=== PATIENT | female | born 1960 | race Caucasian/White ===

== ENCOUNTER 2018-03-09 09:30 | Emergency (ER) | payer MEDICAID ==
[~2018-03-09] VITALS: Ht 157.5 cm; Wt 52.0 kg
[~2018-03-09 09:30] MED LIST: ACET1TAB12 PO; ASPI-1265 PO; ATOR40TA3 PO
[2018-03-09] MEDS ORDERED: POTA20TA19 PO (10:06)
[2018-03-09] MEDS ORDERED: FURO-150 PO (10:06)
[2018-03-09 10:18] VITALS: BP 151/126
== END 2018-03-09 10:16 | disposition home or self-care (01) ==
LOC: ER 09:31
DX: R60.0 Localized edema (principal); F12.10 Cannabis abuse, uncomplicated; Z88.0 Allergy status to penicillin; Z88.1 Allergy status to other antibiotic agents; Z79.82 Long term (current) use of aspirin; E78.00 Pure hypercholesterolemia, unspecified; J44.9 Chronic obstructive pulmonary disease, unspecified; Z79.899 Other long term (current) drug therapy
CPT/HCPCS: 99283